=== PATIENT | female | born 1930 | race Caucasian/White ===

== ENCOUNTER → 2016-11-16 | Outpatient (CLI) | payer MEDICARE ==
[~2016-11-16] MED LIST: AC500T PO; ACHD5005 PO; CHOL100045 PO; ESTR0.5T PO; FENO145T2 PO; METH-336 PO; METO-333 PO; MULT-1029 PO; SULF1TAB38 PO; VALS160T28 PO; VALS80TA PO
--- NOTE | 2016-11-16 14:31 | Diagnostic Imaging Report ---
PA and lateral views of the chest. COMPARISON: 08/27/15. INDICATION: Cough. FINDINGS: There is mild patchy right basilar infiltrate or atelectasis better seen on the frontal view. The left lung is clear. There heart size is normal. No effusion or pneumothorax. The mediastinum and chito appear unremarkable. IMPRESSION: Mild patchy right basilar infiltrate or atelectasis. Dictated by: Dictated on workstation # [id number]
== END ==
LOC: RAD 12:11
PROVIDERS: ATTEND Internal Medicine
DX: R05 Cough (principal); R91.8 Other nonspecific abnormal finding of lung field
CPT/HCPCS: 71020

== ENCOUNTER 2017-05-06 06:14 | Outpatient (CLI) | payer MEDICARE ==
[~2017-05-06] VITALS: Ht 175.3 cm; Wt 86.6 kg
[2017-05-06] MEDS ORDERED: MULT-1021 PO (11:45)
[2017-05-06] MEDS ORDERED: FENO145T20 PO (11:45)
[2017-05-06] MEDS ORDERED: METO-333 PO (11:45)
== END 2017-05-06 11:59 ==
LOC: PREOP 06:14
PROVIDERS: ATTEND Internal Medicine
DX: Z01.818 Encounter for other preprocedural examination (principal); R13.10 Dysphagia, unspecified

== ENCOUNTER 2017-05-10 06:51 | Day surgery (SDC) | payer MEDICARE ==
[~2017-05-10] VITALS: Ht 175.3 cm; Wt 86.6 kg
[~2017-05-10 06:51] MED LIST changes: +FENO145T20 PO; +MULT-1021 PO
[2017-05-10] MEDS ORDERED: D5 LR IV SOLUTION 1,000 ML IV STA (07:01)
[2017-05-10] MEDS ORDERED: HURRICAINE EXT TUBE (BENZOCAINE) XX PRN (07:15)
[2017-05-10] MEDS ORDERED: fentaNYL INJECTION 100 MCG/2 ML AMP IVP PRN (07:15)
[2017-05-10] MEDS ORDERED: LIDOCAINE JELLY 2% (XYLOCAINE) 5 ML TUBE MM PRN (07:15)
[2017-05-10] MEDS ORDERED: MIDAZOLAM 2 MG/2 ML (VERSED) VIAL IVP PRN (07:15)
--- NOTE | 2017-05-10 07:17 | Pre-Op Note & Conscious Sedat ---
Pre-Operative Progress Note H&P Reviewed The H&P was reviewed, patient examined and no changes noted. Date H&P Reviewed: May 10, 2017 Time H&P Reviewed: 07:17 Conscious Sedation Pre-Proced ASA Class: 2 Airway Mallampati Classification: (tribal appropriate class) I. II. III, IV Lungs Heart ASA score ASA 1: a normal healthy patient ASA 2: a patient with a mild systemic disease (mid diabetes, controlled hypertension, obesity ASA 3: a patient with a severe systemic disease that limits activity (angina , COPD, prior Myocardial infarction) ASA 4: a patient with an incapacitating disease that is a constant threat to life (CHF, renal failure) ASA 5: a moribund patient not expected to survive 24 hrs. (ruptured aneurysm) ASA 6: a declared brain patient whose organs are being harvested. For emergent operations, add the letter E after the classification Grade 2 Sedation Plan: Analgesia, Amnesia, Plan communicated to team members, Discussed options with patient/fam, Discussed risks with patient/fam Note The patient is an appropriate candidate to undergo the planned procedure, sedation, and anesthesia. The patient immediately re-assessed prior to indication. SALENA LAMBERT MD May 10, 2017 07:17
[2017-05-10] MEDS ORDERED: MIDAZOLAM 2 MG/2 ML (VERSED) VIAL ONE (07:23)
[2017-05-10] MEDS ORDERED: fentaNYL INJECTION 100 MCG/2 ML AMP ONE (07:24)
[2017-05-10] MEDS ORDERED: HURRICAINE EXT TUBE (BENZOCAINE) ONE (07:24)
[2017-05-10 07:58] VITALS: BP 163/73
--- NOTE | 2017-05-10 07:58 | HISTORY AND PHYSICAL ---
DATE OF SERVICE: DATE OF ADMISSION: 05/10/2017 HISTORY OF PRESENT ILLNESS: The patient is a 86-year-old white female seen in the office on 05/05/2017 with complaints of dysphagia. She reports over the past 2 months she has been having difficulty with predominantly dry foods, including breads, cereals and tougher meats. She points to the sternal notch area as the area where she feels like things are hanging up. She denies melena, abdominal pain or bright red blood per rectum. She denies heartburn symptoms. She is understandably concerned because she has a brother who succumbed to esophageal cancer. SOCIAL HISTORY: She is retired with no past smoking or drinking. PAST MEDICAL HISTORY: Significant for type 2 diabetes mellitus, well controlled; hypertension, well controlled. She underwent colonoscopy in 2014 for occult positive blood in the stool which was unremarkable. PHYSICAL EXAMINATION: VITAL SIGNS: Weight is up 8/tenths of a pound from several weeks, down 2.2 pounds from 4 months ago. Blood pressure 150/84. HEENT: Examination was unremarkable. Sclerae nonicteric. NECK: Revealed no JVD, adenopathy or bruits. Oral cavity reveals a Mallampati class 3 pharyngeal configuration without evidence for exudate or erythema. CHEST: Clear. CARDIOVASCULAR: Reveals regular rate and rhythm without murmur, S3 or S4. ABDOMEN: Soft, supple without mass, organomegaly or tenderness. EXTREMITIES: Reveal no cyanosis, clubbing or edema. ASSESSMENT AND PLAN: The patient was set up for diagnostic EGD for evaluation of dysphagia with a positive family history for esophageal cancer on 05/13/2017. Prep instructions were given and questions were answered. Job ID: [id number] DocumentID: [id number] Dictated Date: 05/05/2017 17:44:56 [employer]or Senior Sergeant Date: 05/05/2017 18:31:56 Dictated By: SALENA LAMBERT MD
[2017-05-10 08:10] VITALS: BP 117/56
[2017-05-10 08:45] VITALS: BP 128/67
[2017-05-10 08:50] VITALS: BP 128/67
--- NOTE | 2017-05-11 14:12 | OPERATIVE REPORT ---
DATE OF SERVICE: EGD SUMMARY The patient underwent EGD evaluation for dysphagia with a positive family history for esophageal cancer in her brother. The patient was placed in the left lateral decubitus position. The endoscope was inserted in the oral cavity and under direct visualization, the esophagus was intubated. The scope was passed down the esophagus through the stomach and into the second portion of the duodenum. Careful inspection was made as the endoscope was withdrawn. The patient tolerated the procedure well. FINDINGS: The posterior hypopharynx, the arytenoid aperture and true and false focal folds were unremarkable. Proximal esophagus was unremarkable. There was a small traction appearing diverticulum in the mid esophagus, approximately 18 cm from the incisural orifice. There was no food debris or evidence for inflammation. A small hiatal hernia was noted with some mild erythema noted at the Z-line, but no evidence for stricture formation or erosive esophagitis. Photograph was obtained. Presence of the cardia of the stomach was unremarkable. Present in the proximal and mid fundus. There were very small areas of hemorrhage with minimal underlying erythema. Biopsy was obtained, which was somewhat friable. Findings were compatible with hemorrhagic gastritis. There was a small amount of hemosiderin stranding. There was no blood noted in the antrum or duodenal bulb. The antrum, Pylorus, the pyloric channel, the duodenal bulb and second portion of the duodenum were unremarkable. ASSESSMENT: 1. Small traction appearing diverticulum was noted in the mid esophagus without retained food or inflammation. Mild erythema was noted at the Z-line without evidence for erosive esophagitis or stricture formation. 2. Findings compatible with mild hemorrhagic gastritis were noted in the proximal fundus. Biopsy was obtained and submitted for histopathology and Helicobacter evaluation. The patient denies utilization of nonsteroidal medication or aspirin. There has been no recent antibiotic usage or potassium. No other abnormalities were noted on today's study. The patient was reassured by today's findings. Job ID: [id number] DocumentID: [id number] Dictated Date: 05/10/2017 21:29:19 Cna Gna Date: 05/11/2017 14:11:22 Dictated By: SALENA LAMBERT MD [facility]
== END 2017-05-10 08:50 | disposition home or self-care (01) ==
LOC: ENDO 06:51
PROVIDERS: ATTEND Internal Medicine
DX: R13.10 Dysphagia, unspecified; I10 Essential (primary) hypertension; Z80.0 Family history of malignant neoplasm of digestive organs; Z79.899 Other long term (current) drug therapy; K29.71 Gastritis, unspecified, with bleeding; E11.9 Type 2 diabetes mellitus without complications; K22.5 Diverticulum of esophagus, acquired; K44.9 Diaphragmatic hernia without obstruction or gangrene
CPT/HCPCS: 88305

== ENCOUNTER → 2017-12-06 | Outpatient (CLI) | payer MEDICARE ==
[~2017-12-06] MED LIST changes: -FENO145T20 PO; +FENO145T37 PO; -VALS160T28 PO; +VALS160T29 PO
--- NOTE | 2017-12-06 17:40 | Diagnostic Imaging Report ---
CLINICAL INDICATION: Patient has low back pain and right hip pain. Patient fell five years ago. EXAM: MRI of the lumbar spine performed without IV contrast. Sagittal T2, sagittal T1, sagittal T2 fat-sat, and axial T2. COMPARISON: None. FINDINGS: There is abnormal kyphosis of the lumbar spine posture. There is no acute lumbar spine fracture. There are Modic type I degenerative signal changes involving the L1-L2, L2-L3, and L3-L4 levels. There are multilevel Modic type II degenerative signal changes seen throughout. There are Schmorl's node seen at the T11-T12, T12-L1, L1-L2, and L2-L3 levels. Limited visualization of the distal thoracic spinal cord, conus medullaris, and cauda equina nerve roots shows no significant abnormality. There is flow artifact greatly obscuring the central canal region. The conus medullaris tip is grossly at the upper L1 vertebral body level. There are multiple hypertrophic spurs seen throughout the lumbar spine and facet arthropathy/hypertrophy. T12-L1: There is a mild diffuse disc bulge and bilateral facet arthropathy. There is mild central canal narrowing. There is no significant neural foramen narrowing. L1-L2: There is a diffuse disc bulge with moderate bilateral facet arthropathy. There is mild ligamentum flavum buckling. There is mild central canal narrowing and no major neural foramen narrowing. L2-L3: There is a diffuse disc bulge with severe loss of intervertebral disc height and hypertrophic disc spurs seen throughout. There is severe bilateral facet arthropathy/hypertrophy. There is moderate central canal narrowing, aciv-sz-yrtwuahx right neural foramen narrowing, and severe left neural foramen narrowing. L3-L4: There is grade 1 retrolisthesis of L3 on L4. There is a diffuse disc bulge with a moderate-sized disc extrusion/herniation seen anteriorly and a small broad posterior disc extrusion/herniation. There is severe bilateral facet arthropathy and ligamentum flavum buckling. There is severe central canal narrowing and severe bilateral neural foramen narrowing. L4-L5: There is a diffuse disc bulge with severe loss of intervertebral disc height and moderate bilateral facet arthropathy/hypertrophy and ligamentum flavum buckling. There is no major significant central canal narrowing. There is severe right neural foramen narrowing and oglmfueb-yh-tlhcxm left neural foramen narrowing. L5-S1: There is mild grade 1 anterolisthesis of L5 on S1. There is a diffuse disc bulge with riwvzzrp-iq-dldqjq bilateral facet arthropathy/hypertrophy. There is no significant central canal narrowing. There is severe right neural foramen narrowing and mild left neural foramen narrowing. 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 This is described in detail above. 2: There is abnormal kyphosis of the lumbar spine posture. 3: There is grade 1 retrolisthesis of L3 on L4 and grade 1 anterolisthesis of L5 on S1. Dictated by: Dictated on workstation # [id number]
== END ==
LOC: RAD 13:25
PROVIDERS: ATTEND Pain Medicine Interventional Pain Medicine
DX: M48.05 Spinal stenosis, thoracolumbar region (principal); M48.061 Spinal stenosis, lumbar region without neurogenic claudication; M51.17 Intervertebral disc disorders with radiculopathy, lumbosacral region; M46.85 Other specified inflammatory spondylopathies, thoracolumbar region; M43.17 Spondylolisthesis, lumbosacral region; M99.83 Other biomechanical lesions of lumbar region; M51.45 Schmorl's nodes, thoracolumbar region
CPT/HCPCS: 72148

== ENCOUNTER 2020-01-12 09:00 | Emergency (ER) | payer MEDICARE ==
[~2020-01-12] VITALS: Ht 172.6 cm; Wt 89.0 kg
[~2020-01-12 09:00] MED LIST changes: +FENO145T26 PO; -FENO145T37 PO
[2020-01-12 09:27] LABS: BASOPHILS % (AUTO) 0 % (0-10); EOSINOPHILS # (AUTO) 0.1 10^3/uL (0.0-0.3); EOSINOPHILS % (AUTO) 2 % (0-10); HEMATOCRIT 36 % (35-52); HEMOGLOBIN 12.3 G/DL (11.5-16.0); LYMPHOCYTES # (AUTO) 2.7 X 10^3 (1.0-4.0); LYMPHOCYTES % (AUTO) 40 % (12-44); MEAN CORPUSCULAR HEMOGLOBIN 33 PG (25-34); MEAN CORPUSCULAR HGB CONC 34 G/DL (32-36); MEAN CORPUSCULAR VOLUME 95 FL (80-99); MEAN PLATELET VOLUME 10.6 FL (7.4-10.4); MONOCYTES # (AUTO) 0.5 X 10^3 (0.0-1.0); MONOCYTES % (AUTO) 8 % (0-12); NEUTROPHILS # (AUTO) 3.4 X 10^3 (1.8-7.8); NEUTROPHILS % (AUTO) 50 % (42-75); PLATELET COUNT 223 10^3/uL (130-400); RED CELL DISTRIBUTION WIDTH 12.2 % (10.0-14.5); WHITE BLOOD COUNT 6.8 10^3/uL (4.3-11.0)
[2020-01-12 09:34] LABS: ALBUMIN 3.9 GM/DL (3.2-4.5); POTASSIUM 3.8 MMOL/L (3.6-5.0)
[2020-01-12 09:36] LABS: CALCIUM 9.2 MG/DL (8.5-10.1)
[2020-01-12 09:37] LABS: TOTAL PROTEIN 6.5 GM/DL (6.4-8.2)
[2020-01-12 09:38] LABS: INR 0.9 (0.8-1.4); PROTHROMBIN TIME PATIENT 12.5 SEC (12.2-14.7)
[2020-01-12 09:39] LABS: BILIRUBIN,TOTAL 0.4 MG/DL (0.1-1.0)
[2020-01-12 09:41] LABS: CREATININE SERUM 1.32 MG/DL (0.60-1.30)
--- NOTE | 2020-01-12 10:08 | ED GI ---
General Chief Complaint: Rect Problems Stated Complaint: RECTAL BLEEDING Nursing Triage Note: AMB TO ROOM HAS PMH OF RECTAL BLEEDNG. REPORTS HAS A LITTLE BLEEDING EVERDAY. TODAY HAS SOME DIARRHEA WITH BRIIGHT RED BLOOD PATIENT REPORTS IT IS A LOT MORE THAN USUALLY. Sepsis Screen: No Definite Risk Source of Information: Patient Exam Limitations: No Limitations History of Present Illness Date Seen by Provider: January 12, 2020 Time Seen by Provider: 09:03 Initial Comments This 89-year-old woman presents to the emergency room with an episode of bright red bloody diarrhea at home. She denies any pain. She has had some intermittent bloody stools for quite some time but this was much more severe. She had a colonoscopy 5 years ago in which diverticulosis and out polyp were noted. She denies any use of blood thinning medications. Allergies and Home Medications Allergies Coded Allergies: Penicillins (Verified Allergy, Unknown, 01/23/07) Home Medications Fenofibrate Nanocrystallized 145 Mg Tablet, 145 MG PO DAILY, (Reported) Metoprolol Tartrate 25 Mg Tablet, 25 MG PO BID, (Reported) Multivits-Min/Iron/FA/Lutein 1 Each Tablet, 1 EACH PO DAILY, (Reported) Valsartan 160 Mg Tablet, 160 MG PO DAILY, (Reported) Patient Home Medication List Home Medication List Reviewed: Yes Review of Systems Review of Systems Constitutional: no symptoms reported EENTM: No Symptoms Reported Respiratory: No Symptoms Reported Cardiovascular: No Symptoms Reported Gastrointestinal: See HPI Genitourinary: No Symptoms Reported Musculoskeletal: no symptoms reported Skin: no symptoms reported Psychiatric/Neurological: No Symptoms Reported Endocrine: No Symptoms Reported Hematologic/Lymphatic: See HPI Past Zeneaoe-Odaicj-Hrgzed Hx Past Med/Social Hx: Reviewed Nursing Past Med/Soc Hx Patient Social History Alcohol Use: Denies Use Recreational Drug Use: No Smoking Status: Never a Smoker Recent Foreign Travel: No Contact w/Someone Who Travel: No Recent Infectious Disease Expo: No Recent Hopitalizations: No Immunizations Up To Date Tetanus Booster (TDap): Unknown Date of Pneumonia Vaccine: May 22, 2009 Date of Influenza Vaccine: May 22, 2012 Seasonal Allergies Seasonal Allergies: No Past Medical History Surgeries: Yes (A&P repair, HEMORRHOIDECTOMY X3,) Appendectomy, Gallbladder, Hysterectomy, Tonsillectomy Respiratory: No Cardiac: Yes Hypertension Neurological: No Reproductive Disorders: No Gastrointestinal: Yes (dyspagia) Musculoskeletal: Yes Arthritis Endocrine: Yes Diabetes, Non-Insulin dep Cancer: No Psychosocial: Yes Sleep Difficulties Integumentary: No Blood Disorders: No Family Medical History No Pertinent Family Hx Physical Exam Vital Signs Vital Signs - First Documented 01/12/20 09:02 Temp 36.8 Pulse 81 Resp 18 B/P (MAP) 151/94 (113) Pulse Ox 95 Capillary Refill : Less Than 3 Seconds Height/Weight/BMI Height: 5'9.00" Weight: 191lbs. 0.0oz. [id number]; 29.00 BMI Method:Stated General Appearance: WD/WN, no apparent distress HEENT: normal ENT inspection Neck: normal inspection Respiratory: lungs clear, normal breath sounds, no respiratory distress Cardiovascular: regular rate, rhythm, no edema, no murmur Gastrointestinal: normal bowel sounds, non tender, soft; No distended Rectal: other (skin tags and possibly some small external hemorrhoids. Dried blood present around the anus but no active bleeding. No masses palpated on digital rectal exam.) Extremities: normal inspection, no pedal edema Neurologic/Psychiatric: tour agent II-XII nml as tested, no motor/sensory deficits, alert, normal mood/affect, oriented x 3 Skin: normal color, warm/dry Progress/Results/Core Measures Results/Orders Lab Results Laboratory Tests Test 01/12/20 09:16 Range/Units White Blood Count 6.8 4.3-11.0 10^3/uL Red Blood Count 3.78 L 4.35-5.85 10^6/uL Hemoglobin 12.3 11.5-16.0 G/DL Hematocrit 36 35-52 % Mean Corpuscular Volume 95 80-99 FL Mean Corpuscular Hemoglobin 33 25-34 PG Mean Corpuscular Hemoglobin Concent 34 32-36 G/DL Red Cell Distribution Width 12.2 10.0-14.5 % Platelet Count 223 130-400 10^3/uL Mean Platelet Volume 10.6 H 7.4-10.4 FL Neutrophils (%) (Auto) 50 42-75 % Lymphocytes (%) (Auto) 40 12-44 % Monocytes (%) (Auto) 8 0-12 % Eosinophils (%) (Auto) 2 0-10 % Basophils (%) (Auto) 0 0-10 % Neutrophils # (Auto) 3.4 1.8-7.8 X 10^3 Lymphocytes # (Auto) 2.7 1.0-4.0 X 10^3 Monocytes # (Auto) 0.5 0.0-1.0 X 10^3 Eosinophils # (Auto) 0.1 0.0-0.3 10^3/uL Basophils # (Auto) 0.0 0.0-0.1 10^3/uL Prothrombin Time 12.5 12.2-14.7 SEC INR Comment 0.9 0.8-1.4 Sodium Level 139 135-145 MMOL/L Potassium Level 3.8 3.6-5.0 MMOL/L Chloride Level 106 98-107 MMOL/L Carbon Dioxide Level 21 21-32 MMOL/L Anion Gap 12 5-14 MMOL/L Blood Urea Nitrogen 28 H 7-18 MG/DL Creatinine 1.32 H 0.60-1.30 MG/DL Estimat Glomerular Filtration Rate 38 BUN/Creatinine Ratio 21 Glucose Level 238 H 70-105 MG/DL Calcium Level 9.2 8.5-10.1 MG/DL Corrected Calcium 9.3 8.5-10.1 MG/DL Total Bilirubin 0.4 0.1-1.0 MG/DL Aspartate Amino Transf (AST/SGOT) 26 5-34 U/L Alanine Aminotransferase (ALT/SGPT) 19 0-55 U/L Alkaline Phosphatase 27 L 40-136 U/L Total Protein 6.5 6.4-8.2 GM/DL Albumin 3.9 3.2-4.5 GM/DL My Orders Orders - ABY AVALOS MD Cbc With Automated Diff (01/12/20 09:13) Comprehensive Metabolic Panel (01/12/20 09:13) Protime With Inr (01/12/20 09:13) Ed Iv/Invasive Line Start (01/12/20 09:13) Vital Signs/I&O 01/12/20 01/12/20 09:02 11:41 Temp 36.8 Pulse 81 72 Resp 18 18 B/P (MAP) 151/94 (113) 150/73 Pulse Ox 95 97 Blood Pressure Mean: 113 Progress Progress Note : Progress Note Patient had no active bleeding during her ER stay. Labs and vitals were stable. Departure Impression Primary Impression: Rectal bleeding Additional Impression: Hyperglycemia Disposition: 01 HOME, SELF-CARE Condition: Improved Departure-Patient Inst. Decision time for Depature: 11:24 Referrals: SALENA LAMBERT MD (PCP/Family) Primary Care Physician Patient Instructions: Gastrointestinal Bleeding, Hyperglycemia, Adult (DC) Add. Discharge Instructions: Consume mostly a clear liquid diet for the remainder of today. Drink plenty of clear liquids. Eat a low sugar, low carbohydrate diet until you see Dr. Lambert again and can be appropriately screened for diabetes. Return to the emergency room if rectal bleeding worsens. Expect to pass a small amount of blood with the next couple of bowel movements as blood clears your colon. Return to the emergency room if you develop other symptoms such as fever, pain, vomiting, worsening bleeding, etc. Avoid medications that can worsen bleeding including aspirin and ibuprofen. Call Dr. Lambert's office first thing on Tuesday morning to report your condition and arrange follow-up. All discharge instructions reviewed with patient and/or family. Voiced understanding. Copy Copies To 1: SALENA LAMBERT MD, JOSHUA T MD January 12, 2020 10:08
[2020-01-12 11:41] VITALS: BP 150/73
== END 2020-01-12 11:32 | disposition home or self-care (01) ==
LOC: EDUNIT# 09:00 → ER 09:01
DX: K62.5 Hemorrhage of anus and rectum (principal); E11.65 Type 2 diabetes mellitus with hyperglycemia; I10 Essential (primary) hypertension; Z88.0 Allergy status to penicillin
CPT/HCPCS: 36415; 80053; 85025; 85610

== ENCOUNTER 2020-01-21 07:33 | Outpatient (RCR) | payer MEDICARE ==
[~2020-01-21] VITALS: Ht 175.3 cm; Wt 85.5 kg
[~2020-01-21 07:33] MED LIST changes: +IRBE1TAB43 PO
== END 2020-01-21 14:51 | disposition home or self-care (01) ==
LOC: PREOP 07:33
PROVIDERS: ATTEND Internal Medicine
DX: Z01.812 Encounter for preprocedural laboratory examination (principal); Z11.59 Encounter for screening for other viral diseases; K62.5 Hemorrhage of anus and rectum
CPT/HCPCS: 87635

== ENCOUNTER 2020-01-25 08:07 | Day surgery (SDC) | payer MEDICARE ==
--- NOTE | 2020-01-17 09:40 | HISTORY AND PHYSICAL ---
DATE OF SERVICE: COLONOSCOPY HISTORY AND PHYSICAL DATE OF ADMISSION: . HISTORY OF PRESENT ILLNESS: The patient is an 89-year-old white female, who reported a large painless amount of rectal bleeding with bright red with an incontinence with a small amount of stool. This occurred on Tuesday. She went to the emergency room, where there were no obvious hemorrhoids or abnormalities on digital rectal evaluation. Her hemoglobin was 12.3 with an MCV of 95 and her blood sugar was elevated at 238 with a creatinine of 1.32 and a BUN of 28. She denied melena, abdominal pain or bloating. She last underwent colonoscopy 5 years ago on review of her records, at which time she had mild diverticular disease. She denies any change in appetite. PAST MEDICAL HISTORY: Significant for type 2 diabetes mellitus that is diet controlled. FAMILY HISTORY: She is not aware of any family history for GI tract malignancy and she has a history of hypertension. PHYSICAL EXAMINATION: GENERAL: Reveals a white female, a little anxious, but in no acute distress otherwise. VITAL SIGNS: Weight was down 1.4 pounds from several weeks ago at 188. Blood pressure 140/76. CHEST: Clear. CARDIOVASCULAR: Regular rate and rhythm without S3 or S4. ABDOMEN: Soft, supple without mass, organomegaly or tenderness. EXTREMITIES: Reveal no cyanosis, clubbing or edema. ASSESSMENT AND PLAN: 1. For further evaluation of reportedly large amount of painless bright red blood per rectum, the patient is being set up for colonoscopy in early January. Prep instructions were discussed with the patient and questions were answered. 2. Type 2 diabetes mellitus. The patient was not under the impression that she had diabetes. We did discuss that was indeed the case and it has been diet controlled. We have been monitoring A1c levels for several years and medication had not been initiated because his A1cs have all been below 7. Her elevated sugar in the emergency room was likely due to combination, and the fact that it was not fasting and the stress of the situation. I did discuss diabetic diet related issues and the importance of continuing regular physical activity. We will have her keep her regular follow up in April at which time we will be repeating lab work. Job ID: [id number] DocumentID: [id number] Dictated Date: 01/17/2020 08:58:56 [employer]down Mill Operator Date: 01/17/2020 09:40:29 Dictated By: SALENA LAMBERT MD
[~2020-01-25] VITALS: Ht 175.3 cm; Wt 85.5 kg
[2020-01-25] VITALS (13 sets, daily range): BP systolic 101–165; BP diastolic 59–87
--- OUTSIDE RECORDS SUMMARY | 2020-01-25 08:23 | XMS REPORT ---
Author Author [employer] [facility] [employer] Address [address] [place] [address] Care Team Providers Care Director Of Psychology Name Role Phone SALENA NOVAK Unavailable SALENA NOVAK MD Unavailable Unavailable PCP, NONE Unavailable Unavailable ROBBIE LARSON, ABY [place] Unavailable Unavailable SALENA NOVAK MD Unavailable Unavailable Unavailable Unavailable Unavailable Unavailable Unavailable Unavailable Unavailable Unavailable Unavailable Unavailable Allergies No Information Medications No Information Problems Active Problems Problem Normalized Date Last Normalized Normalized Provider Fa cility Classification Problem(s) Recorded Problem Problem Sta tus Duration Allergic Allergy status 01-16-2020 - Episodic Active [facility] Via reactions (2 to penicillin Christina AVALOS sources.) [facility] ([id number]) Other Change in Episodic Active no name no informati on gastrointestin bowel habit al disorders (3 sources.) Other lower Cough Episodic Active SALENA WHEELERON , Not Av ailable respiratory (06062) disease (6 sources.) Diabetes Diabetes Chronic Active SALENA NOVAK , Not Avai lable mellitus mellitus (23877) without without complication mention of (12 sources.) complication, type II or unspecified type, not stated as uncontrolled Translations: [ TYPE 2 DIABETES MELLITUS WITHOUT COMPLIC] Abdominal Diaphragmatic Episodic Active SALENA NOVAK , Not Available hernia (9 hernia without (81237) sources.) obstruction or gangrene Diverticulosis Diverticulosis Chronic Active no name no information and of intestine, diverticulitis part (3 sources.) unspecified, without perforation or abscess without bleeding Esophageal Diverticulum Episodic Active SALENA NOVAK , Not Available disorders (9 of esophagus, (98026) sources.) acquired Other Dysphagia, Episodic Active SALENA WHEELERON , Not Av ailable gastrointestin unspecified (35087) al disorders (13 sources.) Unclassified Family history Episodic Active SALENA NOVAK , Not Available (9 sources.) of malignant (24123) neoplasm of digestive organs Gastritis and Gastritis, Episodic Active SALENA NOVAK , No t Available duodenitis (9 unspecified, (61456) sources.) with bleeding Gastrointestin Hemorrhage of 01-16-2020 - Episodic Active [facility] Via al hemorrhage anus and Christina AVALOS (4 sources.) rectum [facility] [place] ([address]) 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 (3 without sources.) mention of cerebral infarction Other acquired Other Episodic Active no name no infor mation deformities (5 biomechanical sources.) lesions of lumbar region NEGATED Other fecal Episodic Active no name no informa tion no abnormalities information (6 sources.) Other Other long Episodic Active SALENA NOVAK , Not Av ailable aftercare (12 term (current) (86777) sources.) drug therapy Malaise and Other malaise Episodic Active no name no inf ormation fatigue (3 and fatigue sources.) Other lower Other Episodic Active SALENA NOVAK , Not Av ailable respiratory nonspecific (96364) disease (6 abnormal sources.) finding of lung field NEGATED Other Episodic Active no name no informatio n no screening information mammogram (14 sources.) Translations: [ ENCNTR SCREEN MAMMOGRAM FOR MALIGNANT NE] Other lower Shortness of Episodic Active no name no info rmation respiratory breath disease (3 sources.) Spondylosis; 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, disc thoracolumbar disorders; region other back Translations: problems (5 [ INTVRT DISC sources.) DISORDERS W RADICULOPATHY, L, OTH INFLAMMATORY SPONDYLOPATHIE S, THORAC, SCHMORL'S NODES, THORACOLUMBAR REGION] Other acquired Spondylolisthe Episodic Active no name no information deformities (5 sis, sources.) lumbosacral region Diabetes Type 2 01-16-2020 - Chronic Active [facility] V ia mellitus with diabetes Christina AVALOS complications mellitus with [facility] - (2 sources.) hyperglycemia [place] ([id number]) Past or Other Problems Problem Normalized Date Last Normalized Normalized Provider Fa cility Classification Problem(s) Recorded Problem Problem Sta tus Duration Skin and Cellulitis and Episodic Completed HUSSAIN Not Ayesha ilable subcutaneous abscess of [place] ([address]) tissue leg, except infections (2 foot sources.) Other Pain in limb Episodic Completed HUSSAIN Not Avail able connective [place] ([address]) tissue disease (2 sources.) Unclassified Spinal no information no information no name no information (5 sources.) stenosis, lumbar region without neurogenic claudication Procedures The data below is from unstructured sourcesNo known history of procedures.No procedure information available.No procedure i nformation available. Immunizations Normalized Immunization Date Notes Care Provider Facili ty Immunization zoster vaccine 02-19-2019 no information no name [facility] recombinant [facility] ([id number]) zoster vaccine 12-19-2018 no information no name [facility] ([id number]) Results Test Name Value Interpretation Reference Range Date Time Fa cility (Normalized) (Normalized) (Medline Reference) laboratory on 2020-01-21 Coronavirus Ab Negative (no code) 01-21-2020 PENDING LOC ATION Qn (S) 09:31-399 [facility] (33751) laboratory on 2020-01-12 Albumin 3.9 g/dL (NEG) 3.4 - 5.4 g/dL 01-12-2020 PENDING LOCATION [Mass/Vol] 05:16-0400 [facility] (35752) ALP [Catalytic 27 U/L (L) 44 - 147 U/L 01-12-2020 PEND ING LOCATION activity/Vol] 05:16-0400 [facility] (70542) ALT [Catalytic 19 U/L (NEG) 4 - 40 U/L 01-12-2020 PENDIN G LOCATION activity/Vol] 05:16-0400 [facility] (84278) Anion gap 12 mmol/L (NEG) 3 - 11 mmol/L 01-12-2020 PENDING LOCATION [Moles/Vol] 05:16-0400 [facility] (93493) AST [Catalytic 26 U/L (NEG) 10 - 34 U/L 01-12-2020 PENDI NG LOCATION activity/Vol] 05:16-0400 [facility] (59825) Basophils (Bld) 0.0 10*3/uL (NEG) 0 - 0.3 10*3/uL 01-12-2020 PENDING LOCATION [#/Vol] 05:16-0400 [facility] (68174) Basophils/100 0 % (NEG) 0.5 - 1 % 01-12-2020 PENDING LOCATION WBC (Bld) 05:16-0400 [facility] (84156) Bilirubin 0.4 mg/dL (NEG) 0.1 - 1.2 mg/dL 01-12-[facility]Vol[facility] 05:16-0400 [facility] () Calcium 9.2 mg/dL (NEG) 8.5 - 10.2 mg/dL 01-12-2020 PENDI NG LOCATION [Mass/Vol] 05:16-0400 [facility] ([id number]) Calcium 9.3 mg/dL (NEG) 8.5 - 10.2 mg/dL 05 PENDI NG LOCATION [Mass/Vol] 05:16-0400 [facility] (58578) Chloride 106 mmol/L (NEG) 95 - 106 mmol/L 01-12-2020 PENDI NG LOCATION [Moles/Vol] 05:16-0400 [facility] (72379) CO2 [Moles/Vol] 21 mmol/L (NEG) 23 - 29 mmol/L 01-12-2020 P ENDING LOCATION 05:16-0400 [facility] (89309) Creatinine 1.32 mg/dL (H) 01-12-2020 PENDING LOCATI ON [Mass/Vol] 05:16-0400 [facility] (68096) Creatinine and 38 (no code) 01-12-2020 PENDING LOC ATION Glomerular 05:16-0400 [facility] (69102) filtration rate.predicted panel - Serum, Plasma or Blood Eosinophils 0.1 10*3/uL (NEG) 0.05 - 0.5 01-12-2020 PENDING LOCATION (Bld) [#/Vol] 10*3/uL 05:16-0400 [facility] ([id number]) Eosinophils/100 2 % (NEG) 1 - 4 % 01-12-2020 [facility] WBC (Bld) 05:16-0400 [facility] (28460) Erythrocyte 12.2 % (NEG) 11.6 - 14.6 % 01-12-2020 [facility] distribution 05:16-0400 [facility] (57117) width (RBC) [Ratio] Glucose 238 mg/dL (H) 60 - 125 mg/dL 01-12-2020 PENDING LOCATION [Mass/Vol] 05:16-0400 [facility] (19814) Hematocrit (Bld) 36 % (NEG) 36.1 - 50.3 % 01-12-2020 P ENDING LOCATION [Volume 05:16-0400 [facility] (37729) fraction] Hemoglobin (Bld) 12.3 g/dL (NEG) 12.1 - 17.2 g/dL 01-12-2020 PENDING LOCATION [Mass/Vol] 05:16-0400 [facility] (14324) INR Coag 0.9 (NEG) 01-12-2020 PENDING LOCATI ON (Platelet poor 05:16-0400 [facility] (78752) plasma or blood) [Relative time] Lymphocytes 2.7 10*3/uL (NEG) 0.9 - 2.9 01-12-2020 PENDING LOCATION (Bld) [#/Vol] 10*3/uL 05:16-0400 [facility] (96890) Lymphocytes/100 40 % (NEG) 20 - 40 % 01-12-2020 PENDIN G LOCATION WBC (Bld) 05:16-0400 [facility] (00496) MCH (RBC) 33 pg (NEG) 27 - 31 pg 01-12-2020 PENDING LOC ATION [Entitic mass] 05:16-0400 [facility] ([id number]) MCHC (RBC) 34 g/dL (NEG) 32 - 36 g/dL 01-12-2020 PENDING LOCATION [Mass/Vol] 05:16-0400 [facility] (46089) MCV (RBC) 95 (NEG) 01-12-2020 PENDING LOCATI ON [Entitic vol] 05:16-0400 [facility] (46726) Monocytes (Bld) 0.5 10*3/uL (NEG) 0.3 - 0.9 01-12-2020 PEND ING LOCATION [#/Vol] 10*3/uL 05:16-0400 [facility] ([id number]) Monocytes/100 8 % (NEG) 2 - 8 % 01-12-2020 PENDING LOCATION WBC (Bld) 05:16-0400 [facility] (86271) Neutrophils 3.4 10*3/uL (NEG) 1.7 - 7 10*3/uL 01-12-2020 PE ND[facility] LOCATION (Bld) [#/Vol] 05:16-0400 [facility] ([id number]) Neutrophils/100 50 % (NEG) 40 - 60 % 01-12-2020 PENDIN G LOCATION WBC (Bld) 05:16-0400 [facility] ([id number]) Platelet mean 10.6 (H) 01-12-2020 PENDING LOCA TION volume (Bld) 05:16-0400 [facility] ([id number]) [Entitic vol] Platelets (Bld) 223 10*3/uL (NEG) 150 - 450 01-12-2020 PEND ING LOCATION [#/Vol] 10*3/uL 05:16-0400 [facility] (97273) Potassium 3.8 mmol/L (NEG) 3.7 - 5.2 mmol/L 01-12-2020 PEND ING LOCATION [Moles/Vol] 05:16-0400 [facility] ([id number]) Protein 6.5 g/dL (NEG) 6.4 - 8.3 g/dL 01-12-2020 PENDING LOCATION [Mass/Vol] 05:16-0400 [facility] (79713) PT Coag (PPP) 12.5 s (NEG) 9.4 - 12.5 s [facility]-12-[facility]Time[facility]:16-0 [facility] ([id number]) RBC (Bld) 3.78 10*6/uL (L) 4.2 - 6.1 01-12-2020 PENDING L OCATION [#/Vol] 10*6/uL 05:16-0400 [facility] ([id number]) Sodium 139 mmol/L (NEG) 135 - 145 mmol/L 01-12-2020 PEND [facility] LOCATION [Moles/Vol] 05:16-0400 [facility] (33571) Urea nitrogen 28 mg/dL (H) 7 - 20 mg/dL 01-12-[facility] [Mass/Vol] 05:16-0400 [facility] (99961) Urea 21 mg/mg (no code) 6 - 22 mg/mg 01-12-2020 PENDING L OCATION nitrogen/Creatin 05:16-0400 [facility] ([id number]) ine [Mass ratio] WBC (Bld) 6.8 10*3/uL (NEG) 3.5 - 10.5 01-12-2020 PENDING L OCATION [#/Vol] 10*3/uL 05:16-0400 [facility] ([id number]) Vital Signs The data below is from unstructured sources Vital Response Date/Time Temperature (Fahrenheit) 98.1 degree s F (97.6 - 99.5) 08/27/2015 6:48pm Temperature (Calculated Celsius) 36. 38772 degrees C (36.4 - 37.5) 08/27/2015 6:48pm Temperature Source Temporal 08/27/2015 6:48pm Pulse Rate (adult) 90 bpm (60 - 90) 08/27/2015 9:22pm Respiratory Rate 20 bpm (12 - 24) 08/27/2015 6:48pm O2 Sat by Pulse Oximetry 98 % (88 - 100) 08/27/2015 6:48pm Blood Pressure 140/84 mm Hg 08/27/2015 9:22pm Blood Pressure Mean 126 mm Hg 08/27/2015 6:48pm Pain Pain Intensity 0 2015 9:22pm Height (Feet) 5 feet 01/2016 6:48pm Height (Inches) 9 inches 08/27/2015 6:48pm Height (Calculated Centimeters) 175. 247569 cm 08/27/2015 6:48pm Weight (Pounds) 195 pounds 08/27/2015 6:48pm Weight (Calculated Kilograms) 88.450 513 kilograms 08/27/2015 6:48pm Calculated BMI 28.79 01/2016 6:48pm Vital Response Date/Time Temperature (Fahrenheit) 97.5 degree s F (97.6 - 99.5) 08/31/2015 10:10am Temperature (Calculated Celsius) 36. 14343 degrees C (36.4 - 37.5) 08/31/2015 10:10am Temperature Source Temporal 08/27/2015 6:48pm Pulse Rate (adult) 58 bpm (60 - 90) 08/31/2015 11:25am Respiratory Rate 16 bpm (12 - 24) 08/31/2015 11:25am O2 Sat by Pulse Oximetry 98 % (88 - 100) 08/31/2015 11:25am Blood Pressure 152/81 mm Hg 08/31/2015 11:25am Blood Pressure Mean 116 mm Hg 08/31/2015 10:10am Pain Pain Intensity 0 2015 11:25am Height (Feet) 5 feet 05/2016 10:10am Height (Inches) 9 inches 08/31/2015 10:10am Height (Calculated Centimeters) 175. 836918 cm 08/31/2015 10:10am Weight (Pounds) 195 pounds 08/31/2015 10:10am Weight (Calculated Kilograms) 88.450 513 kilograms 08/31/2015 10:10am Calculated BMI 28.79 05/2016 10:10am Vital Response Date/Time Temperature (Fahrenheit) 97.8 degree s F (97.6 - 99.5) 07/11/2015 11:30am Temperature (Calculated Celsius) 36. 94007 degrees C (36.4 - 37.5) 07/11/2015 11:30am Temperature Source Tympanic 07/11/2015 11:30am Pulse Rate (adult) 60 bpm (60 - 90) 07/11/2015 11:30am Respiratory Rate 20 bpm (12 - 24) 07/11/2015 11:30am O2 Sat by Pulse Oximetry 96 % (88 - 100) 07/11/2015 11:30am Blood Pressure 147/80 mm Hg 07/11/2015 11:30am Blood Pressure Mean 109 mm Hg 07/11/2015 9:40am Pain Pain Intensity 0 2014 11:30am Height (Feet) 5 feet 9:45am Height (Inches) 9.00 inches 07/11/2015 9:45am Height (Calculated Centimeters) 175. 877477 cm 07/11/2015 9:45am Weight (Pounds) 192 pounds 07/11/2015 9:45am Weight (Ounces) 9.0 oz 1 09/10/2014 9:45am Weight (Calculated Grams) 13441.882 gm 07/11/2015 9:45am Weight (Calculated Kilograms) 87.344 882 kilograms 07/11/2015 9:45am Calculated BMI 28.35 9:45am Vital Response Date/Time Height (Feet) 5 feet 11:39am Height (Inches) 9.00 inches 05/06/2017 11:39am Height (Calculated Centimeters) 175. 170900 cm 05/06/2017 11:39am Weight (Pounds) 191 pounds 05/06/2017 11:39am Weight (Ounces) 0.0 oz 0 05/06/2017 11:39am Weight (Calculated Grams) 21357.14 gm 05/06/2017 11:39am Weight (Calculated Kilograms) 86.636 144 kilograms 05/06/2017 11:39am Calculated BMI 28.2 04/22 11:39am Vital Response Date/Time Height (Feet) 5 feet 11:39am Height (Inches) 9.00 inches 05/06/2017 11:39am Height (Calculated Centimeters) 175. 645654 cm 05/06/2017 11:39am Weight (Pounds) 191 pounds 05/06/2017 11:39am Weight (Ounces) 0.0 oz 0 05/06/2017 11:39am Weight (Calculated Grams) 79899.14 gm 05/06/2017 11:39am Weight (Calculated Kilograms) 86.636 144 kilograms 05/06/2017 11:39am Calculated BMI 28.2 04/22 11:39am Interventions No Information Plan of Treatment The data below is from unstructured sources Discharge Date 08/27/15 9:22pm Disposition 01 HOME, SELF-CARE Condition at Discharge Improved Instructions/Education Provided Ches t Pain (ED) Palpitations (ED) Prescriptions See Medication Section Referrals SALENA NOVAK MD - Primca y Care Physician SALENA NOVAK MD - Primary Care Physician PETROS LOPEZ MD - Additional Instructions/Education Al l discharge instructions reviewed with patient and/or family. Voiced understanding. Call for Dr. Lopez and Dr. Novak tomorrow for recheck appointment. You should be seen by Dr. Lopez within the next week. Return for worse pain, fever, vomiting, breathing problems or other concerns as needed. Take medications as directed. You will start your first dose of metoprolol tomorrow evening and then you will begin to take it twice daily thereafter. Discharge Date 08/31/15 11:25am Disposition 01 HOME, SELF-CARE Condition at Discharge Unchanged Instructions/Education Provided [employer] Operator martita Hypertension (ED) Prescriptions See Medication Section Referrals SALENA NOVAK MD - [place] Runar y Care Physician Additional Instructions/Education Fo llow-up with Dr. Novak tomorrow as scheduled with your blood pressure cuff. Continue with all medications as prescribed. Return if any problems. All discharge instructions reviewed with patient and/or family. Voiced understanding. Prescriptions See Medication Section Discharge Date 07/11/15 11:30am Instructions/Education Provided Catron noscopy (DC) Prescriptions See Medication Section Discharge Date 05/06/17 11:59am Prescriptions See Medication Section Discharge Date 05/06/17 11:59am Prescriptions See Medication Section Goals No Information Social History No Information Functional Status The data below is from unstructured sourcesNo functional status results.No functional status results.No functional status results.No functional status results.No functional status results.No functional status results.No functional status results.No functional status information avai lable.No functional status information available. Mental Status No Information Encounters Encounter Normalized Encounter Encounter Diagnosis Care Provi concetta Organization Date Type 01-12-2020 Emergency department no information [facility] [place] - patient visit (no phone) [facility] 01-12-2020 (no phone) 10-21-2012 Emergency department no information no name no organization name - patient visit 10-21-2012 04-19-2018 Patient encounter no information no name no or ganization name 12-06-2017 Patient encounter no information no name no or ganization name 05-10-2017 Patient encounter no information no name no or ganization name - 05-10-2017 11-16-2016 Patient encounter no information no name no or ganization name 11-20-2015 Patient encounter no information no name no or ganization name 09-18-2015 Patient encounter no information no name no or ganization name - 11-19-2015 07-11-2015 Patient encounter no information no name no or ganization name - 07-11-2015 03-04-2015 Patient encounter no information no name no or ganization name 05-27-2014 Patient encounter no information no name no or ganization name 02-27-2014 Patient encounter no information no name no or ganization name 08-13-2013 Patient encounter no information no name no or ganization name 02-09-2013 Patient encounter no information no name no or ganization name 01-21-2020 Patient encounter no information SALENA NOVAK MD (no [facility] - procedure phone) [facility] 01-21-2020 (no phone) 01-18-2020 Patient encounter no information SALENA NOVAK MD (no [facility] procedure phone) [facility] (no phone) 01-17-2020 Patient encounter no information SALENA NOVAK MD (no [facility] procedure phone) [facility] (no phone) 01-12-2020 Patient encounter no information ABY [place] KLAUDIA NN [facility] [address] procedure (no phone) [facility] (no phone) 02-19-2019 Patient encounter no information no name no or ganization name procedure 12-19-2018 Patient encounter no information no name no or ganization name procedure 12-11-2018 Patient encounter no information no name no or ganization name procedure NEGATED no information Encounter for other no name no organization name preprocedural examination Medical Equipment No Information Payers No Information Advance Directives Directive Response Recor ded Date/Time Advance Directives Yes 0 08/27/15 6:48pm Health Care Power of Tafe Lecturer Yes 08/27/15 6:48pm Organ Donor No 08/27/15 6:48pm Resuscitation Status Full Code 08/27/15 6:48pm Directive Response Recor ded Date/Time Advance Directives Yes 0 08/31/15 10:14am Health Care Power of Tafe Lecturer Yes 08/31/15 10:14am Organ Donor No 08/31/15 10:14am Resuscitation Status Full Code 08/31/15 10:14am Directive Response Recor ded Date/Time Advance Directives Yes 0 08/31/15 10:14am Health Care Power of Tafe Lecturer Yes 08/31/15 10:14am Organ Donor No 08/31/15 10:14am Directive Response Recor ded Date/Time Advance Directives Yes 1 09/10/14 9:42am Health Care Power of Tafe Lecturer Yes 07/11/15 9:42am Organ Donor No 07/11/15 9:42am Resuscitation Status Full Code 07/11/15 9:42am Directive Response Recor ded Date/Time Advance Directives Yes 0 05/06/17 11:39am Health Care Power of Tafe Lecturer Yes 05/06/17 11:39am Organ Donor No 05/06/17 11:39am Resuscitation Status Full Code 05/06/17 11:39am Discharge Instructions No hospital discharge instructions.No hospital discharge instructions.No hospital discharge instructions.No hospital discharge instructions.No hospital discharge instruction information available. Additional Source Comments This clinical document has been generated using [employer] software that has been certified by the Office of the National Coordinator for Health Information Technology (ONC 15.99.04.3023.Diam.31.00.0.034706) and the National Committee for Humanities And Languages Professor (NCQA, as an eMeasure certified technology). FOR RECORDS PERTAINING TO PATIENTS WHO ARE OR HAVE BEEN ENROLLED IN A CHEMICAL D EPENDENCY/SUBSTANCE ABUSE PROGRAM, SOME INFORMATION MAY BE OMITTED. This clinica l summary was aggregated from multiple sources. Caution should be exercised in using it in the provision of clinical care. This summary normalizes information from multiple sources, and as a consequence, information in this document may ma terially change the coding, format and clinical context of patient data. In gui tion, data may be omitted in some cases. CLINICAL DECISIONS SHOULD BE BASED ON T HE PRIMARY CLINICAL RECORDS. [employer] provides no warranty or guara ntee of the accuracy or completeness of information in this document.The followi ng information is based on time limited clinical information
--- OUTSIDE RECORDS SUMMARY | 2020-01-25 08:24 | XMS REPORT | Continuity of Care Document ---
Author Organization Unknown Address Unknown Phone Unavailable Allergies Active Description Code Type Severity Reaction Onset Reported/Identified Relationship to Patient Clinical Status Yes Penicillins [id number] Drug Aller gy Unknown N/A 07/11/2015 Medications There is no data. Problems Date Dx Coded Attending Type Code Diagnosis Diagnosed By 02/11/2012 Ot 250.00 02/11/2012 Ot 401.9 02/11/2012 Ot 843.8 02/11/2012 Ot 913.0 02/11/2012 Ot 924.01 02/11/2012 Ot E849.0 02/11/2012 Ot E885.9 10/21/2012 Ot 682.6 CELL ULITIS OF LEG 10/21/2012 Ot 729.5 PAIN IN LIMB 03/26/2015 PETRA LARSON, SALENA Mondragon Ot V76. 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 4 CHANGE IN BOWEL HABIT 07/11/2015 PETRA LARSON, SALENA Mondragon Ot R19. 5 OTHER FECAL ABNORMALITIES 07/15/2015 PETRA LARSON, SALENA Mondragon Ot R19. 5 07/15/2015 PETRA LARSON, SALENA Mondragon Ot Z01.818 08/26/2015 SALENA LAMBERT MD Ot R00. 2 08/27/2015 Ot V76.12 08/27/2015 Ot V76.12 08/27/2015 SALENA LAMBERT MD Ot V76. 12 08/27/2015 PETRA LARSON, SALENA Mondragon Ot 433. 10 08/27/2015 PETRA LARSON, SALENA Mondragon Ot V76. 12 08/27/2015 PETRA LARSON, SALENA Mondragon Ot 250. 00 08/27/2015 PETRA LARSON, SALENA Mondragon Ot 780. 79 08/27/2015 SALENA LAMBERT MD Ot 786. 05 08/27/2015 SALENA LAMBERT MD Ot V76. 12 08/27/2015 SALENA LAMBERT MD Ot R19. 5 08/27/2015 ASLENA LAMBERT MD Ot Z01.818 08/27/2015 PETRA LARSON, SALENA Mondragon Ot R00. 2 08/27/2015 PA CONWAY MD Ot I10 ESSENTIAL (PRIMARY) HYPERTENSION 08/27/2015 ZORAIDA LARSON, PA Mondragon Ot R00.2 PALPITATIONS 08/27/2015 ZORAIDA LARSON, PA Mondragon Ot Z79.899 OTHER FPC (CURRENT) DRUG THERAPY 08/31/2015 AURA LARSON, SALENA Bourgeois Ot I10 ESSENTIAL (PRIMARY) HYPERTENSION 09/17/2015 PETRA LARSON, SALENA Mondragon Ot R00. 2 10/03/2015 PETRA LARSON, SALENA Mondragon Ot R00. 2 11/19/2015 PETRA LARSON, SALENA Mondragon Ot R00. 2 PALPITATIONS 11/17/2016 SALENA LAMBERT MD Ot R05 COUGH 11/17/2016 SALENA LAMBERT MD Ot R91. 8 OTHER NONSPECIFIC ABNORMAL FINDING OF MIKE 12/07/2016 SALENA LAMBERT MD Ot R05 COUGH 12/07/2016 SALENA LAMBERT MD Ot R91. 8 OTHER NONSPECIFIC ABNORMAL FINDING OF MIKE 01/19/2017 SALENA LAMBERT MD Ot R05 COUGH 01/19/2017 SALENA LAMBERT MD Ot R91. 8 OTHER NONSPECIFIC ABNORMAL FINDING OF MIKE 05/05/2017 SALENA LAMBERT MD Ot R05 COUGH 05/05/2017 SALENA LAMBERT MD Ot R91. 8 OTHER NONSPECIFIC ABNORMAL FINDING OF MIKE 05/06/2017 SALENA LAMBERT MD Ot R13. 10 DYSPHAGIA, UNSPECIFIED 05/06/2017 SALENA LAMBERT MD Ot Z01.818 ENCOUNTER FOR OTHER PREPROCEDURAL EXAMIN 05/09/2017 SALENA LAMBERT MD Ot R13. 10 DYSPHAGIA, UNSPECIFIED 05/09/2017 SALENA LAMBERT MD Ot Z01.818 ENCOUNTER FOR OTHER PREPROCEDURAL EXAMIN 05/10/2017 SALENA LAMBERT MD Ot E11. 9 TYPE 2 DIABETES MELLITUS WITHOUT COMPLIC 05/10/2017 SALENA LAMBERT MD Ot I10 ESSENTIAL (PRIMARY) HYPERTENSION 05/10/2017 SALENA LAMBERT MD Ot K22. 5 DIVERTICULUM OF ESOPHAGUS, ACQUIRED 05/10/2017 SALENA LAMBERT MD Ot K29. 71 GASTRITIS, UNSPECIFIED, WITH BLEEDING 05/10/2017 SALENA LAMBERT MD Ot K44. 9 DIAPHRAGMATIC HERNIA WITHOUT OBSTRUCTION 05/10/2017 SALENA LAMBERT MD Ot R13. 10 DYSPHAGIA, UNSPECIFIED 05/10/2017 SALENA LAMBERT MD Ot Z79.899 OTHER SALES TRADER (CURRENT) DRUG THERAPY 05/10/2017 SALENA LAMBERT MD Ot Z80. 0 FAMILY HISTORY OF MALIGNANT NEOPLASM OF 05/12/2017 SALENA LAMBERT MD Ot E11. 9 TYPE 2 DIABETES MELLITUS WITHOUT COMPLIC 05/12/2017 SALENA LAMBERT MD Ot I10 ESSENTIAL (PRIMARY) HYPERTENSION 05/12/2017 SALNEA LAMBERT MD Ot K22. 5 DIVERTICULUM OF ESOPHAGUS, ACQUIRED 05/12/2017 SALENA LAMBERT MD Ot K29. 71 GASTRITIS, UNSPECIFIED, WITH BLEEDING 05/12/2017 SALENA LAMBERT MD Ot K44. 9 DIAPHRAGMATIC HERNIA WITHOUT OBSTRUCTION 05/12/2017 SALENA LAMBERT MD Ot R13. 10 DYSPHAGIA, UNSPECIFIED 05/12/2017 SALENA LAMBERT MD Ot Z79.899 OTHER FPC (CURRENT) DRUG THERAPY 05/12/2017 SALENA LAMBERT MD Ot Z80. 0 FAMILY HISTORY OF MALIGNANT NEOPLASM OF 12/01/2017 SALENA LAMBERT MD Ot V76. 12 OTH SCREEN MAMMO-MALIGN NEOPLASM OF JOANN 12/01/2017 SALENA LAMBERT MD Ot 433. 10 CAROTID ARTERY OCCLUSION W O CEREBRAL IN 12/01/2017 SALENA LAMBERT MD Ot V76. 12 OTH SCREEN MAMMO-MALIGN NEOPLASM OF JOANN 12/01/2017 SALENA LAMBERT MD Ot 250. 00 DIAB CARRILLO WO COMPL, TYPE II OR UNSPEC TY 12/01/2017 SALENA LAMBERT MD Ot 780. 79 OTH MALAISE FATIGUE 12/01/2017 SALENA LAMBERT MD Ot 786. 05 SHORTNESS OF BREATH 12/01/2017 SALENA LAMBERT MD Ot V76. 12 OTH SCREEN MAMMO-MALIGN NEOPLASM OF JOANN 12/01/2017 SALENA LAMEBRT MD Ot R19. 5 OTHER FECAL ABNORMALITIES 12/01/2017 SALENA LAMBERT MD Ot Z01.818 ENCOUNTER FOR OTHER PREPROCEDURAL EXAMIN 12/01/2017 SALENA LAMBERT MD Ot R00. 2 PALPITATIONS 12/01/2017 SALENA LAMBERT MD Ot R05 COUGH 12/01/2017 SALENA LAMBERT MD Ot R91. 8 OTHER NONSPECIFIC ABNORMAL FINDING OF MIKE 12/02/2017 SALENA LAMBERT MD Ot V76. 12 OTH SCREEN MAMMO-MALIGN NEOPLASM OF JOANN 12/02/2017 SALENA LAMBERT MD Ot 433. 10 CAROTID ARTERY OCCLUSION W O CEREBRAL IN 12/02/2017 SALENA LAMBERT MD Ot V76. 12 OTH SCREEN MAMMO-MALIGN NEOPLASM OF JOANN 12/02/2017 SALENA LAMBERT MD Ot 250. 00 DIAB CARRILLO WO COMPL, TYPE II OR UNSPEC TY 12/02/2017 SALENA LAMBERT MD Ot 780. 79 OTH MALAISE FATIGUE 12/02/2017 SALENA LAMBERT MD Ot 786. 05 SHORTNESS OF BREATH 12/02/2017 SALENA LAMBERT MD Ot V76. 12 OTH SCREEN MAMMO-MALIGN NEOPLASM OF JOANN 12/02/2017 SALENA LAMBERT MD Ot R19. 5 OTHER FECAL ABNORMALITIES 12/02/2017 SALENA LAMBERT MD Ot Z01.818 ENCOUNTER FOR OTHER PREPROCEDURAL EXAMIN 12/02/2017 SALENA LAMBERT MD Ot R00. 2 PALPITATIONS 12/02/2017 SALENA LAMBERT MD Ot R05 COUGH 12/02/2017 SALENA LAMBERT MD Ot R91. 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, THORACOLUMBAR REGION 12/07/2017 RACHEL HUERTA DO Ot M99.83 OTHER BIOMECHANICAL LESIONS OF LUMBAR RE 12/27/2017 HEARNDON DO, RACHEL L Ot 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, LUMBOSACRAL REGION 12/27/2017 HEARNDON DO, RACHEL L Ot M46.85 OTH INFLAMMATORY SPONDYLOPATHIES, THORAC 12/27/2017 HEARNDON DO, RACHEL L Ot M48.05 SPINAL STENOSIS, THORACOLUMBAR REGION 12/27/2017 HEARNDON DO, RACHEL L Ot M48.061 SPINAL STENOSIS, LUMBAR REGION WITHOUT N 12/27/2017 HEARNDON DO, RACHEL L Ot M51.17 INTVRT DISC DISORDERS W RADICULOPATHY, L 12/27/2017 HEARNDON DO, RACHEL L Ot 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, THORACOLUMBAR REGION 12/27/2017 HEARNDON DO, RACHEL L Ot M99.83 OTHER BIOMECHANICAL LESIONS OF LUMBAR RE 01/18/2018 HEARNDON DO, RACHEL L Ot 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 12 OTH SCREEN MAMMO-MALIGN NEOPLASM OF JOANN 04/19/2018 SALENA LAMBERT MD Ot 433. 10 CAROTID ARTERY OCCLUSION W O CEREBRAL IN 04/19/2018 SALENA LAMBERT MD Ot V76. 12 OTH SCREEN MAMMO-MALIGN NEOPLASM OF JOANN 04/19/2018 SALENA LAMBERT MD Ot 250. 00 DIAB CARRILLO WO COMPL, TYPE II OR UNSPEC TY 04/19/2018 SALENA LAMBERT MD Ot 780. 79 OTH MALAISE FATIGUE 04/19/2018 SALENA LAMBERT MD Ot 786. 05 SHORTNESS OF BREATH 04/19/2018 SALENA LAMBERT MD, Ot V76. 12 OTH SCREEN MAMMO-MALIGN NEOPLASM OF JOANN 04/19/2018 SALENA LAMBERT MD Ot R19. 5 OTHER FECAL ABNORMALITIES 04/19/2018 SALENA LAMBERT MD, Ot Z01.818 ENCOUNTER FOR OTHER PREPROCEDURAL EXAMIN 04/19/2018 SALENA LAMBERT MD Ot R00. 2 PALPITATIONS 04/19/2018 SALENA LAMBERT MD, Ot R05 COUGH 04/19/2018 SALENA LAMBERT MD, Ot R91. 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 31 ENCNTR SCREEN MAMMOGRAM FOR MALIGNANT NE 04/20/2018 SALENA LAMBERT MD Ot Z12. 31 ENCNTR SCREEN MAMMOGRAM FOR MALIGNANT NE 04/20/2018 SALENA LAMBERT MD Ot Z12. 31 ENCNTR SCREEN MAMMOGRAM FOR MALIGNANT NE 05/12/2018 SALENA LAMBERT MD, Ot Z12. 31 ENCNTR SCREEN MAMMOGRAM FOR MALIGNANT NE 01/16/2020 ABY AVALOS MD Ot E11.65 TYPE 2 DIABETES MELLITUS WITH HYPERGLYCE 01/16/2020 ABY AVALOS MD Ot I10 ESSENTIAL (PRIMARY) HYPERTENSION 01/16/2020 ABY AVALOS MD Ot K62.5 HEMORRHAGE OF ANUS AND RECTUM 01/16/2020 ABY AVALOS MD Ot Z88.0 ALLERGY STATUS TO PENICILLIN 01/18/2020 ABY AVALOS MD, Ot E11.65 TYPE 2 DIABETES MELLITUS WITH HYPERGLYCE 01/18/2020 ABY AVALOS MD, Ot I10 ESSENTIAL (PRIMARY) HYPERTENSION 01/18/2020 ABY AVALOS MD, Ot K62.5 HEMORRHAGE OF ANUS AND RECTUM 01/18/2020 ABY AVALOS MD, Ot Z88.0 ALLERGY STATUS TO PENICILLIN Procedures There is no data. Results Test Result Range Complete blood count (CBC) with automate d white blood cell (WBC) differential - 01/12/20 09:16 Blood leukocytes automated count (number/volume) 6.8 10*3/uL 4.3-11.0 Blood erythrocytes automated count (number/volume) 3.78 10*6/uL 4.35-5.85 Venous blood hemoglobin measurement (mass/volume) 12.3 g/dL 11.5-16.0 Blood hematocrit (volume fraction) 36 % 35-52 Automated erythrocyte mean corpuscular volume 95 [ foz_us] 80-99 Automated erythrocyte mean corpuscular h emoglobin (mass per erythrocyte) 33 pg 25-34 Automated erythrocyte mean corpuscular h emoglobin concentration measurement (mass/volume) 34 g/dL 32-36 Automated erythrocyte distribution width ratio 12. 2 % 10.0- 14.5 Automated blood platelet count (count/volume) 223 10*3/uL 130-400 Automated blood platelet mean volume measurement 10.6 [foz_us] 7.4-10.4 Automated blood neutrophils/100 leukocytes 50 % 42-75 Automated blood lymphocytes/100 leukocytes 40 % 12-44 Blood monocytes/100 leukocytes 8 % 0-12 Automated blood eosinophils/100 leukocytes 2 % 0-10 Automated blood basophils/100 leukocytes 0 % 0-10 Blood neutrophils automated count (number/volume) 3.4 10*3 1.8-7.8 Blood lymphocytes automated count (number/volume) 2.7 10*3 1.0-4.0 Blood monocytes automated count (number/volume) 0. 5 10*3 0.0-1.0 Automated eosinophil count 0.1 10*3/uL 0 .0-0.3 Automated blood basophil count (count/volume) 0.0 10*3/uL 0.0-0.1 Comprehensive metabolic panel - 01/12/20 09:16 Serum or plasma sodium measurement (moles/volume) 139 mmol/L 135-145 Serum or plasma potassium measurement (moles/volume) 3.8 mmol/L 3.6-5.0 Serum or plasma chloride measurement (moles/volume) 106 mmol/L 98-107 Carbon dioxide 21 mmol/L 21-32 Serum or plasma anion gap determination (moles/volume) 12 mmol/L 5-14 Serum or plasma urea nitrogen measurement (mass/volume ) 28 mg/dL 7-18 Serum or plasma creatinine measurement (mass/volume) 1.32 mg/dL 0.60-1.30 Serum or plasma urea nitrogen/creatinine mass ratio 21 NRG Serum or plasma creatinine measurement w ith calculation of estimated glomerular filtration rate 38 NRG Serum or plasma glucose measurement (mass/volume) 238 mg/dL 70-105 Serum or plasma calcium measurement (mass/volume) 9.2 mg/dL 8.5-10.1 Serum or plasma total bilirubin measurement (mass/volu me) 0.4 mg/dL 0.1-1.0 Serum or plasma alkaline phosphatase lindsey surement (enzymatic activity/volume) 27 U/L 40-136 Serum or plasma aspartate aminotransfera se measurement (enzymatic activity/volume) 26 U/L 5-34 Serum or plasma alanine aminotransferase measurement (enzymatic activity/volume) 19 U/L 0-55 Serum or plasma protein measurement (mass/volume) 6.5 g/dL 6.4-8.2 Serum or plasma albumin measurement (mass/volume) 3.9 g/dL 3.2-4.5 CALCIUM CORRECTED 9.3 mg/dL 8.5-10.1 PT panel in platelet poor plasma by coag ulation assay - 01/12/20 09:16 Prothrombin time (PT) in platelet poor plasma by coagu lation assay 12.5 s 12.2-14.7 INR in platelet poor plasma or blood by coagulation as say 0.9 0.8-1.4 Coronavirus SARS-CoV-2 SO 2018 - 0 13:31 Coronavirus Ab [Units/volume] in Serum Negative Negative Encounters ACCT No. Visit Date/Time Discharge Status Pt. Type Provider Facility Loc./Unit Complaint [id number] 02/19/2019 09:40:00 02/19/2019 23:59: 59 CLS Outpatient [facility] [id number] 01/21/2020 07:33:00 020 14:51:00 DIS Outpatient SALENA LAMBERT MD [facility] PREOP COLONOSCOPY [id number] 01/12/2020 09:01:00 020 11:32:00 DIS Outpatient ABY AVALOS MD [facility] ER RECTAL BLEEDING [id number] 04/19/2018 07:43:00 018 23:59:59 CLS Outpatient SALENA LAMBERT MD [facility] RAD SCREENING [id number] 12/06/2017 13:25:00 018 23:59:59 CLS Outpatient RACHEL HUERTA DO [facility] RAD M5416 [id number] 05/10/2017 06:51:00 017 08:50:00 DIS Outpatient SALENA LAMBERT MD [facility] ENDO REFLUX [id number] 05/06/2017 06:14:00 017 11:59:00 DIS Outpatient SALENA LAMBERT MD [facility] PREOP EGD [id number] 11/16/2016 12:11:00 017 23:59:59 CLS Outpatient SALENA LAMBERT MD [facility] RAD COUGH,CONGESTION,SOB,EV AL FOR PNEUMONIA [id number] 11/20/2015 09:00:00 016 23:59:59 CLS Preadmit SALENA LAMBERT MD [facility] CARD INTERMITTANT HEART RACI NG W/PALPITATIONS [id number] 09/18/2015 07:22:00 016 00:01:00 DIS Outpatient SALENA LAMBERT MD [facility] CARD INTERMITTANT HEART RACI NG W/PALPITATIONS [id number] 08/31/2015 09:33:00 016 11:25:00 DIS Emergency AURASALENA Robertson MD [facility] ER HIGH BP [id number] 08/27/2015 18:50:00 016 21:22:00 DIS Emergency PA CONWAY MD [facility] ER PALPITATIONS [id number] 07/11/2015 08:52:00 015 11:30:00 DIS Outpatient SALENA LAMBERT MD [facility] SDC POSITIVE IFOB [id number] 07/09/2015 05:33:00 23:59:59 CLS Outpatient SALENA LAMBERT MD [facility] PREOP POSITIVE IFOB [id number] 03/04/2015 09:39:00 23:59:59 CLS Outpatient SALENA LAMBERT MD [facility] RAD SCREENING [id number] 05/27/2014 11:34:00 014 23:59:59 CLS Outpatient SALENA LAMBERT MD [facility] LAB WEAKNESS,SOB [id number] 02/27/2014 09:19:00 014 23:59:59 CLS Outpatient SALENA LAMBERT MD [facility] RAD SCREENING [id number] 08/13/2013 14:35:00 013 23:59:59 CLS Outpatient SALENA LAMBERT MD [facility] RAD 3 EPISODES OF TRANSIENT VISION LOSS [id number] 04/28/2013 10:47:00 013 23:59:59 CLS Outpatient [id number] 02/09/2013 10:08:00 013 23:59:59 CLS Outpatient SALENA LAMBERT MD [facility] RAD SCREENING [id number] 01/25/2020 09:00:00 P EN Preadmit SALENA LAMBERT MD [facility] ENDO RECTAL BLEEDING [id number] 10/21/2012 12:42:00 Document Registration [id number] 02/09/2012 20:49:00 Document Registration [id number] 08/30/2011 07:50:00 Document Registration [id number] 07/20/2010 10:41:00 Document Registration
[2020-01-25] MEDS ORDERED: LIDOCAINE JELLY 2% 6 ML SYRINGE MM PRN (08:30)
[2020-01-25] MEDS: D5 LR IV SOLUTION 1,000 ML IV SCH ×2 (08:30→09:28)
[2020-01-25] MEDS ORDERED: MIDAZOLAM 5 MG/5 ML (VERSED) VIAL IV PRN (08:30)
[2020-01-25] MEDS ORDERED: fentaNYL INJECTION 100 MCG/2 ML AMP IVP ONE (08:30)
[2020-01-25] MEDS ORDERED: D5 LR IV SOLUTION 1,000 ML IV ONE (08:40)
[2020-01-25] MEDS ORDERED: LIDOCAINE JELLY 2% 6 ML SYRINGE ONE (08:53)
[2020-01-25] MEDS ORDERED: MIDAZOLAM 5 MG/5 ML (VERSED) VIAL ONE (08:53)
[2020-01-25] MEDS ORDERED: fentaNYL INJECTION 100 MCG/2 ML AMP ONE (08:53)
--- NOTE | 2020-01-25 21:03 | OPERATIVE REPORT ---
DATE OF SERVICE: COLONOSCOPY SUMMARY INDICATION FOR THE PROCEDURE: Bright red blood per rectum. The patient was placed in the left lateral decubitus position. Prior to undergoing colonoscopy, digital rectal evaluation was performed. Anal sphincter tone was normal and the perianal reflexes intact. There was a rough area at 6 o'clock position in the anal canal, compatible with an anal fissure. No evidence for blood was noted at the time of the procedure on the gloved finger or during my colonoscopy. No other abnormalities noted on digital inspection of anal canal or distal rectal vault. The colonoscope was then inserted into the rectum and under direct visualization advanced to cecum. The cecum was identified by identification of ileocecal valve and cecal strap. Photographic documentation was obtained. Careful inspection was made as the colonoscope withdrawn. The patient tolerated the procedure well. Quality of prep was good. FINDINGS: There was no evidence for internal or external hemorrhoids. There is evidence for an anal fissure at the 6 o'clock position. The rectum was unremarkable. Several small to medium sigmoid diverticulum were present without evidence for diverticulitis. The descending colon, splenic flexure, transverse colon, hepatic flexure, ascending colon and cecum were unremarkable. ASSESSMENT: 1. Findings compatible with anal fissure, the most likely source of this patient's bleeding. The patient is currently not having problems with constipation. Discussed avoiding straining at the stool. As the patient is having minimal discomfort at this time, did not recommend anything other than higher fiber diet. 2. Mild diverticular disease involving the sigmoid colon was present without evidence for diverticulitis. Considering the patient's age, we will not be advising future screening colonoscopy. Job ID: [id number] DocumentID: [id number] Dictated Date: 01/25/2020 12:29:14 Architectural Renderer Date: 01/25/2020 21:02:22 Dictated By: SALENA LAMBERT MD
== END 2020-01-25 10:20 | disposition home or self-care (01) ==
LOC: ENDO 08:07
PROVIDERS: ATTEND Internal Medicine
DX: K62.5 Hemorrhage of anus and rectum (principal); K57.30 Diverticulosis of large intestine without perforation or abscess without bleeding; E11.9 Type 2 diabetes mellitus without complications; I10 Essential (primary) hypertension; Z88.0 Allergy status to penicillin

== ENCOUNTER 2021-03-06 00:23 | Emergency (ER) | payer MEDICARE, OTHER ==
[~2021-03-06] VITALS: Ht 173 cm; Wt 80.0 kg
--- NOTE | 2021-03-06 00:44 | ED General ---
General Chief Complaint: General Problems/Pain Stated Complaint: TOOK TOO MANY PILLS,WANTS BLOOD PRESSURE CHECKED Source of Information: Patient History of Present Illness Date Seen by Provider: Mar 06, 2021 Time Seen by Provider: 00:34 Initial Comments PT ARRIVES VIA POV FROM HOME STATES SHE WENT TO BE TONIGHT USUAL STATES SHE WOKE UP AT 2130 TONIGHT, AND THOUGHT IT WAS MORNING AND SHE TOOK HER REGULAR MORNING MEDICATIONS STATES SHE THEN REALIZED THAT IS WAS NIGHT AND NOT MORNING AND BECAME VERY CONCERNED ABOUT HER BLOOD PRESSURE --WORRIED THAT IT MIGHT BE LOW, AND SO CAME HERE TO GET HER BLOOD PRESSURE CHECKED. DOES NOT HAVE A BLOOD PRESSURE MONITOR AT HOME PT HAS NO SYMPTOMS--NO DIZZINESS, NO SYNCOPE, NO CHEST PAIN, NO SHORTNESS OF BREATH, NO PALPITATIONS, NO NAUSEA, NO SWEATS PT STATES SHE NORMALLY TAKES METOPROLOL 25 MG IN AM AND PM--TOOK PM DOSE AROUND 1615, AND THEN ACCIDENTALLY TOOK HER MORNING DOSE AT 2130 SHE ALSO TOOK HER FENOFIBRATE 145 MG, WELL HER IRBESARTAN/HCTZ 300/12.5--WHICH SHE ALSO NORMALLY TAKES IN THE MORNING, ALONG WITH THE METOPROLOL. PCP: DR. LAMBERT Allergies and Home Medications Allergies Coded Allergies: Penicillins (Verified Allergy, Unknown, 01/23/07) Home Medications Fenofibrate Nanocrystallized 145 Mg Tablet, 145 MG PO DAILY, (Reported) Irbesartan/Hydrochlorothiazide 1 Each Tablet, 1 TAB PO DAILY, (Reported) Metoprolol Tartrate 25 Mg Tablet, 25 MG PO BID, (Reported) Multivits-Min/Iron/FA/Lutein 1 Each Tablet, 1 EACH PO DAILY, (Reported) Patient Home Medication List Home Medication List Reviewed: Yes Review of Systems Review of Systems Constitutional: no symptoms reported Respiratory: no symptoms reported Cardiovascular: no symptoms reported Gastrointestinal: no symptoms reported Musculoskeletal: no symptoms reported Psychiatric/Neurological: Anxiety; Denies Headache, Denies Numbness, Denies Paresthesia, Denies Tingling, Denies Weakness Hematologic/Lymphatic: No Symptoms Reported Immunological/Allergic: no symptoms reported Past Tzmocpk-Iyhbhv-Pdnzjc Hx Patient Social History Tobacco Use?: No Use of E-Cig and/or Vaping dev: No Substance use?: No Alcohol Use?: No Immunizations Up To Date Tetanus Booster (TDap): Unknown Seasonal Allergies Seasonal Allergies: No Past Medical History Surgeries: Yes (A&P repair, HEMORRHOIDECTOMY X3,) Appendectomy, Bladder Surgery, Gallbladder, Hysterectomy, Rectal, Tonsillectomy Respiratory: No Cardiac: Yes High Cholesterol, Hypertension Neurological: No Reproductive Disorders: No Genitourinary: No Gastrointestinal: Yes (rectal bleeding) Musculoskeletal: Yes Arthritis Endocrine: Yes Diabetes, Non-Insulin dep HEENT: No Cancer: No Psychosocial: Yes Sleep Difficulties Integumentary: No Blood Disorders: No Family Medical History No Pertinent Family Hx Physical Exam Vital Signs Vital Signs - First Documented 03/06/21 00:30 Temp 36.9 Pulse 78 Resp 24 B/P (MAP) 192/107 (135) Pulse Ox 96 O2 Delivery Room Air Capillary Refill : Height, Weight, BMI Height: 5'9.00" Weight: 191lbs. 0.0oz. 86.860115bt; 27.82 BMI Method:Stated General Appearance: No Apparent Distress, WD/WN, Anxious Neck: Normal Inspection Respiratory: Normal Breath Sounds Cardiovascular: Regular Rate, Rhythm, No Edema, No Murmur Gastrointestinal: Non Tender, Soft Extremity: Normal Inspection Neurologic/Psychiatric: Alert, Oriented x3, No Motor/Sensory Deficits Skin: Normal Color, Warm/Dry Progress/Results/Core Measures Suspected Sepsis SIRS Temperature: Pulse: Respiratory Rate: Blood Pressure / Mean: Results/Orders Vital Signs/I&O 03/06/21 03/06/21 03/06/21 00:30 01:02 01:02 Temp 36.9 36.9 Pulse 78 78 Resp 24 24 B/P (MAP) 192/107 (135) 169/73 (105) 169/73 (105) Pulse Ox 96 96 O2 Delivery Room Air Capillary Refill : Progress Note : Progress Note REASSURANCE GIVEN TO PATIENT NO HYPOTENSION OR BRADYCARDIA DURING ER STAY PT HAS NO SYMPTOMS Departure Impression Primary Impression: Ingestion, drug, inadvertent or accidental Disposition: 01 HOME, SELF-CARE Condition: Stable Departure-Patient Inst. Decision time for Depature: 00:43 Referrals: ASLENA LAMBERT MD (PCP/Family) Primary Care Physician Patient Instructions: Medication Safety, Adult Add. Discharge Instructions: DO NOT TAKE ANOTHER DOSE OF YOUR MORNING MEDICATIONS TAKE YOUR REGULAR MEDICATIONS TOMORROW EVENING USUAL RETURN TO ER IF PROBLEMS All discharge instructions reviewed with patient and/or family. Voiced understanding. ANABEL HA DO Mar 06, 2021 00:44
[2021-03-06 01:02] VITALS: BP 169/73
== END 2021-03-06 01:02 | disposition home or self-care (01) ==
LOC: EDUNIT# 00:23 → ER 00:28
DX: R68.89 Other general symptoms and signs (principal); T44.7X5A Adverse effect of beta-adrenoreceptor antagonists, initial encounter; I10 Essential (primary) hypertension; E78.00 Pure hypercholesterolemia, unspecified; E11.9 Type 2 diabetes mellitus without complications; Z79.899 Other long term (current) drug therapy
CPT/HCPCS: 99281

== ENCOUNTER → 2021-10-01 | Outpatient (CLI) | payer MEDICARE ==
--- NOTE | 2021-10-02 09:33 | Diagnostic Imaging Report ---
INDICATION: Routine screening. COMPARISON is made with prior mammograms 04/19/2018 and 03/04/2015. 2-D and 3-D bilateral screening mammography was performed with CAD. Scattered fibroglandular densities are identified bilaterally. The parenchymal pattern is stable. No mass or malignant-appearing microcalcifications are seen. Axillae are unremarkable. IMPRESSION: BI-RADS Category 1 No mammographic features suspicious for malignancy are identified. ACR BI-RADS Category 1: Negative. Result letter will be mailed to the patient. Note: At least 10% of breast cancer is not imaged by mammography. Dictated by: Dictated on workstation # [id number]
== END ==
LOC: RAD 14:45
PROVIDERS: ATTEND Nurse Practitioner Family
DX: Z12.31 Encounter for screening mammogram for malignant neoplasm of breast (principal)
CPT/HCPCS: 77063; 77067

== ENCOUNTER 2022-03-03 12:05 | Emergency (ER) | payer MEDICARE ==
[~2022-03-03] VITALS: Ht 172.7 cm; Wt 74.8 kg
[2022-03-03] MEDS ORDERED: ACETAMINOPHEN 500 MG TAB (TYLENOL) PO STA (12:50)
--- NOTE | 2022-03-03 13:45 | Diagnostic Imaging Report ---
INDICATION: Fall, pain. FINDINGS: AP pelvis and two-view right hip show no fracture, dislocation, or acute appearing articular irregularity. IMPRESSION: No acute appearing abnormality. Dictated by: Dictated on workstation # [id number]
--- NOTE | 2022-03-03 14:08 | ED Hip Pain/Injury ---
General Chief Complaint: Hip/Pelvic Problems Stated Complaint: FELL HIT HEAD/R HIP PAIN Nursing Triage Note: PT AMB TO [facility] 2 VIA WHEELCHAIR A/O X4. PT STATED THAT SHE FELL AT 1030 TODAY AT HER HOME WHILE WALKING FROM [place] INTO THE HOUSE AND HIT HER RIGHT HIP/SACRUM AND HEAD ON THE FLOOR. PT SERGE LOC AND WAS ABLE TO GET UP OFF THE FLOOR. PT HAS CALL LIGHT IN REACH AND 2 BED RAILS UP. History of Present Illness Date Seen by Provider: Mar 03, 2022 Time Seen by Provider: 12:45 Initial Comments 89-year-old female reports falling at home from a standing position, landing on her right hip and bumping her posterior temporal region. She denies any other injuries or loss of consciousness. She is able to ambulate after the fall independently. She has had no previous falls or head injuries. She is not on anticoagulants. She has had no headache, seizure activity, nausea/vomiting, or other concerns. Timing/Duration: just prior to arrival Location: hip (R) Method of Injury: fell Associated Symptoms: denies symptoms Allergies and Home Medications Allergies Coded Allergies: Penicillins (Verified Allergy, Unknown, 01/23/07) Patient Home Medication List Home Medication List Reviewed: Yes Fenofibrate Nanocrystallized (Fenofibrate) 145 Mg Tablet, 145 MG PO DAILY, (Reported) Entered as Reported by: SELVIN JOYCE on 05/06/17 1145 Irbesartan/Hydrochlorothiazide (Irbesartan-Hctz 300-12.5 mg Tb) 1 Each Tablet, 1 TAB PO DAILY, (Reported) Entered as Reported by: SELVIN JOYCE on 01/18/20 1124 Metoprolol Tartrate (Metoprolol Tartrate) 25 Mg Tablet, 25 MG PO BID, (Reported) Entered as Reported by: SELVIN JOYCE on 05/06/17 1145 Multivits-Min/Iron/FA/Lutein (Centrum Silver Women Tablet) 1 Each Tablet, 1 EACH PO DAILY, (Reported) Entered as Reported by: SELVIN JOYCE on 05/06/17 1145 Review of Systems Constitutional: no symptoms reported, see HPI Musculoskeletal: see HPI, muscle pain (Right buttocks) All Other Systems Reviewed Negative Unless Noted: Yes Past Jibqlbr-Wjsojr-Ubsnzk Hx Patient Social History Tobacco Use?: No Substance use?: No Alcohol Use?: No Pt feels they are or have been: No Immunizations Up To Date Tetanus Booster (TDap): Unknown Influenza Vaccine Up-to-Date: Yes; 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 Anatomic Pathology: MODERNA Seasonal Allergies Seasonal Allergies: No Past Medical History Surgeries: Yes (A&P repair, HEMORRHOIDECTOMY X3,) Appendectomy, Bladder Surgery, Gallbladder, Hysterectomy, Rectal, Tonsillectomy Respiratory: No Cardiac: Yes High Cholesterol, Hypertension Neurological: No Reproductive Disorders: No Genitourinary: No Gastrointestinal: Yes (rectal bleeding) Musculoskeletal: Yes Arthritis Endocrine: Yes Diabetes, Non-Insulin dep HEENT: No Cancer: No Psychosocial: Yes Sleep Difficulties Integumentary: No Blood Disorders: No Family Medical History Reviewed Nursing Family Hx No Pertinent Family Hx Physical Exam Vital Signs Vital Signs - First Documented 03/03/22 12:38 Temp 37.2 Pulse 90 Resp 16 B/P (MAP) 110/93 (99) Pulse Ox 95 O2 Delivery Room Air Capillary Refill : Less Than 3 Seconds Height, Weight, BMI Height: 5'9.00" Weight: 191lbs. 0.0oz. 86.886594sl; 25.00 BMI Method:Stated General Appearance: No Apparent Distress, WD/WN Neck: Full Range of Motion, Normal Inspection, Non Tender, Supple Cardiovascular: Regular Rate, Rhythm, No Edema, No Murmur, Normal Peripheral Pulses Respiratory: Chest Non Tender, Lungs Clear, Normal Breath Sounds Gastrointestinal: Normal Bowel Sounds, Non Tender, Soft Back: Normal Inspection, No CVA Tenderness, No Vertebral Tenderness; No Muscle Spasm, No Vertebral Tenderness; Other (Mild tenderness right buttocks, no ecchymosis or erythema noted. She has full range of motion to her right and left lower extremities. She ambulates with a steady gait.) Extremity: Normal Capillary Refill, Normal Inspection, Normal Range of Motion, Pelvis Stable Neurologic/Psychiatric: Alert, Oriented x3, No Motor/Sensory Deficits, Normal Mood/Affect Progress/Results/Core Measures Results/Orders My Orders Orders - WALT DE SANTIAGO Pelvis With Right Hip 2-3views (03/03/22 12:50) Acetaminophen Tablet (Tylenol Tablet) (03/03/22 12:50) Vital Signs/I&O 03/03/22 03/03/22 12:38 14:20 Temp 37.2 37.1 Pulse 90 78 Resp 16 14 B/P (MAP) 110/93 (99) 135/71 Pulse Ox 95 97 O2 Delivery Room Air Room Air Blood Pressure Mean: 99 Diagnostic Imaging Diagonstic Imaging: Xray Plain Films/CT/US/NM/MRI: pelvis, hip Comments NAME: VITALY [facility]ITC[facility] REC#: [id number] PT STATUS: REG ER : 1930 PHYSICIAN: WALT DE SANTIAGO ADMIT DATE: 03/03/22/ER Draft Date of Exam:03/03/22 PELVIS WITH RIGHT HIP 2-3VIEWS INDICATION: Fall, pain. FINDINGS: AP pelvis and two-view right hip show no fracture, dislocation, or acute appearing articular irregularity. IMPRESSION: No acute appearing abnormality. Dictated on workstation # [id number] Dict: 03/03/22 1340 Trans: 03/03/22 1345 [id number] Interpreted by: MEHDI ARCHIBALD Electronically signed by: Reviewed: Reviewed by Me Departure Impression Primary Impression: Fall Qualified Codes: W19.XXXA - Unspecified fall, initial encounter Additional Impressions: Contusion of hip Qualified Codes: S70.01XA - Contusion of right hip, initial encounter Minor head injury Qualified Codes: S09.90XA - Unspecified injury of head, initial encounter Disposition: 01 HOME, SELF-CARE Condition: Improved Departure-Patient Inst. Decision time for Depature: 13:55 Referrals: SALENA LAMBERT MD (PCP/Family) Primary Care Physician Patient Instructions: Contusion (DC), Minor Head Injury (DC) Add. Discharge Instructions: Alternate Tylenol 650 mg and ibuprofen 600 mg every 4 hours for pain or discomfort. Activity as tolerated, avoid any elevated surfaces or risks for falls. Follow-up with your primary care provider if symptoms or not improving or worsen. Return to the emergency department for headache, seizure activity, nausea and vomiting, or new urgent healthcare needs. All discharge instructions reviewed with patient and/or family. Voiced understanding. WALT DE SANTIAGO Mar 03, 2022 14:08
[2022-03-03 14:20] VITALS: BP 135/71
== END 2022-03-03 14:20 | disposition home or self-care (01) ==
LOC: EDUNIT# 12:05 → ER 12:07
DX: S70.01XA Contusion of right hip, initial encounter (principal); S09.90XA Unspecified injury of head, initial encounter; W18.30XA Fall on same level, unspecified, initial encounter; Y92.009 Unspecified place in unspecified non-institutional (private) residence as the place of occurrence of the external cause